=== PATIENT | female | born 1985 | race Caucasian/White ===

== ENCOUNTER 2018-11-12 16:36 | Emergency (ER) | payer OTHER ==
[~2018-11-12] VITALS: Ht 172.7 cm; Wt 95.2 kg
[~2018-11-12 16:36] MED LIST: LITHIUM CARBON450 MG PO
--- OUTSIDE RECORDS SUMMARY | 2018-11-12 16:40 | XMS ---
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 [facility] has no Care Guidelines for this patient. Care History Medical/Surgical 05/05/2018 [facility] - PATIENT DOES NOT HAVE A PCP - [facility] IS UNABLE TO CONTACT PATIENT. PATIENT DOES NOT HAVE AN ADDRESS OR NUMBER OF CONTACT LISTED. - PLEASE REFER PATIENT TO THE WALK IN CLINIC TO BECOME ESTABLISHED WITH A PCP. - PLEASE PROVIDE [facility] CONTACT NUMBER [phone] FOR FURTHER DISCUSSION WITH JOSE MANUEL. Ivette VISIT COUNT (12 MO.) 3 [facility] TOTAL 3 NOTE: Visits indicate total known visits. ED/UCC VISIT TRACKING (12 MO.) 11/12/2018 16:37 [facility] TYPE: Emergency COMPLAINT: - FACIAL WOUND 05/04/2018 20:47 [facility] TYPE: Emergency COMPLAINT: - MEDICAL CLEARANCE DIAGNOSES: - Encounter for other general examination - Procedure and treatment not carried out due to patient leaving prior to being seen by health care provider 05/01/2018 22:38 [facility] TYPE: Emergency COMPLAINT: - MEDICAL CLEARANCE DIAGNOSES: - Encounter for other general examination - Personal history of nicotine dependence - Allergy status to penicillin - Allergy status to narcotic agent status INPATIENT VISIT TRACKING (12 MO.) No inpatient visits to display in this time frame [email or web address]
[2018-11-12] MEDS ORDERED: CIPRO250 MG PO (17:01)
[2018-11-12] MEDS ORDERED: EVAC-U-GEN8.6 MG PO (17:01)
[2018-11-12] MEDS ORDERED: ACETAMINOPHEN325 M1 PO (17:02)
[2018-11-12] MEDS ORDERED: FIBER LAX625 MG PO (17:02)
[2018-11-12] MEDS ORDERED: ABILIFY10 MG PO (17:03)
[2018-11-12] MEDS ORDERED: BUSPIRONE HCL10 MG PO (17:03)
[2018-11-12] MEDS ORDERED: REMERON30 MG PO (17:04)
[2018-11-12] MEDS ORDERED: VISTARIL50 MG PO (17:04)
[2018-11-12] MEDS ORDERED: LITHIUM CARBON300 M1 PO (17:04)
[2018-11-12] MEDS ORDERED: EUTHYROX50 MCG PO (17:05)
[2018-11-12] MEDS ORDERED: BACTRIM DS TAB1 EACH PO (17:20)
== END 2018-11-12 17:28 | disposition home or self-care (01) ==
LOC: ED 16:36
DX: L02.01 Cutaneous abscess of face (principal); L03.211 Cellulitis of face; Z87.891 Personal history of nicotine dependence; Z88.0 Allergy status to penicillin; Z88.5 Allergy status to narcotic agent; Z79.899 Other long term (current) drug therapy
CPT/HCPCS: 99283